=== PATIENT | male | born 1955 | race Caucasian/White ===

== ENCOUNTER 2016-05-22 07:11 | Day surgery (SDC) | payer OTHER ==
[~2016-05-22] VITALS: Ht 170.2 cm; Wt 88.9 kg
[~2016-05-22 07:11] MED LIST: CARISOPRODOL350 PO; CEL100 PO; DELTASONE5 MG PO; FLO4 PO; METHOTREXATE2.5 M2 PO; MOBIC15 MG PO; NOR10 PO; NORCO1 TA2 PO; PEPCID20 MG PO; PREVACID30 MG PO; PRILOSEC20 MG PO; ROBAXIN500 MG PO; TOPROL XL50 MG PO; ZESTRIL10 MG PO
[2016-05-22 07:34] VITALS: BP 134/91
[2016-05-22 10:19] VITALS: BP 136/92
== END 2016-05-22 11:25 | disposition home or self-care (01) ==
LOC: DS 07:11 → GI 07:30 → OR 07:30 → DS 11:25
PROVIDERS: Internal Medicine Gastroenterology
PROC: 0DJD8ZZ Inspection of Lower Intestinal Tract, Via Natural or Artificial Opening Endoscopic (ICD-10-PCS; principal; 2016-05-22 07:30)
DX: Z12.11 Encounter for screening for malignant neoplasm of colon (principal); K57.30 Diverticulosis of large intestine without perforation or abscess without bleeding; K64.8 Other hemorrhoids
CPT/HCPCS: 45378; J1200; J1610; J2250; J2310; J3010; J3490